=== PATIENT | male | born 1975 | race Caucasian/White ===

== ENCOUNTER 2018-12-02 05:05 | Emergency (ER) | payer OTHER, SELFPAY ==
[2018-12-02 05:06] VITALS: BP 182/97; PULSE 106; RESP 18; TEMP 38.7; O2SAT 95; BMI 41.3
[2018-12-02 05:10] VITALS: BP 182/97; PULSE 105; RESP 18; TEMP 38.7; O2SAT 95
[2018-12-02 05:12] VITALS: BP 182/97; PULSE 106; RESP 18; TEMP 38.7; O2SAT 95
--- NOTE | 2018-12-02 05:21 | ED.DCSUM_ITS ---
- ER Visit Summary Date of Service: 12/02/18 Chief Complaint: [] Flu History of Present Illness: The patient is a 43 M [] patient stated he thinks he has the flu. It came on 7 days ago continuous. He has had dry cough intermittent fevers and chills fatigue muscle aches. He is using Motrin and Tylenol. 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 Denies any high risk groups. He had remote Hodgkin's lymphoma 20 years ago. Physical Examination: [] Vital signs reviewed. Temperature 100.6 General: Well-nourished well-developed Head: Normocephalic atraumatic Eyes: Pupils equal round and reactive to light extraocular movements intact ENT: TMs clear no hemotympanum no trauma Neck: Nontender full range of motion Cardiovascular: Regular tachycardia with normal rhythm. No murmurs normal S1-S2 Respiratory: No distress mild end expiratory wheezes bilateral chest nontender Abdomen: Soft nontender nondistended normal bowel sounds no masses Back: Nontender no CVA tenderness Extremities: Nontender active range of motion ?4 extremities no trauma Skin: Normal color no trauma Neuro alert oriented cranial nerves II through XII intact normal strength sensation reflexes Test Results: [] Emergency Department Course and Treatment: [] Given albuterol inhaler 2 puffs. Given oral Tylenol and IV fluids and Zofran IV. Chest x-ray obtained. felt much better after treatment. No more wheezing. Chest x-ray shows a right-sided pneumonia infiltrate. Patient given oral Levaquin. This time he will be discharged with Zofran his albuterol inhaler and a prescription for Levaquin. I do not feel he needs admitted. We will follow-up as an outpatient. Treatment Plan: [] Disposition: [] Impression: [] Community-acquired pneumonia This note was generated with [employer] dictation software. It may contain incorrect words, spelling, and punctuation that were not noted in review of the chart prior to signing ED Disposition - Plan for ED Patient: Chief Complaint: General Illness Referrals: Sonya Tovar MD [Primary Care Provider] -
[2018-12-02] MEDS: 0.9% Normal Saline 1,000 ML 1000 ML IV (05:24)
[2018-12-02] MEDS: Ondansetron 4 MG/2 ML Vial IV (05:27)
--- NOTE | 2018-12-02 05:30 | RAD_ITS ---
STUDY: X-RAY CHEST REASON FOR EXAM: Male, 43 years old. Cough. Flulike symptoms. TECHNIQUE: 2 views COMPARISON: March 04, 2007 FINDINGS: There is interval development of a right upper and middle lobe consolidations consistent with pneumonia. The left lung is clear. The heart is normal. There are degenerative changes of the thoracic spine. Normal visualized ribs, clavicles, and shoulders. There is no demonstrated abnormality of the visualized soft tissue structures of the upper abdomen. RAD/Chest PA and Lateral IMPRESSION: Right lung pneumonia. Electronically Signed: Gianni Lynn MD at 6:11 EST Tel , Service support ,
--- NOTE | 2018-12-02 05:49 | ED.DEP ---
ED Disposition - Plan for ED Patient: Disposition: Home or Assisted Living Chief Complaint: General Illness Instructions: Pneumonia Treatment Prescriptions: Ondansetron [Zofran Odt] 8 mg PO Q8H PRN PRN #10 tab PRN Reason: Nausea Levofloxacin 750 mg PO DAILY 7 Days #7 tab Referrals: Sonya Tovar MD [Primary Care Provider] -
[2018-12-02] MEDS: levoFLOXacin 750 MG Tablet PO (06:05)
[2018-12-02] MEDS: Acetaminophen 500 MG Tablet 1000 MG PO (06:05)
[2018-12-02 06:35] VITALS: BP 135/81; PULSE 90; RESP 18; O2SAT 94
== END 2018-12-02 06:36 | disposition home or self-care (01) ==
PROVIDERS: Emergency Provider Emergency Medicine; Family Provider Internal Medicine; PCP Internal Medicine
DX: J18.9 Pneumonia, unspecified organism (principal); Z85.71 Personal history of Hodgkin lymphoma
CPT/HCPCS: 71046; 96361; 96374; 99285; J7030; J2405